=== PATIENT | female | born 1995 | race Hispanic/Latino ===

== ENCOUNTER 2017-08-24 14:01 | Emergency (ER) | payer OTHER ==
[2017-08-24 14:26] LABS: APPEARANCE,URINE Turbid (CLEAR); BILIRUBIN,URINE Negative (NEGATIVE); COLOR,URINE Yellow (YELLOW); GLUCOSE, URINE (UA) Negative (NEGATIVE); KETONES,URINE Negative (NEGATIVE); LEUKOCYTE ESTERASE ,URINE Large (NEGATIVE); NITRATE,URINE Negative (NEGATIVE); OCCULT BLOOD,URINE Trace (NEGATIVE); PH,URINE 7.5 (5.0-8.0); PROTEIN,URINE Negative (NEGATIVE)
[2017-08-24 14:30] LABS: AMORPHOUS SEDIMENT,UR Many /LPF (None Seen); BACTERIA,URINE Few /HPF (None Seen); SQUAMOUS EPITHELIAL CELL,UR Few /HPF (0-2)
[2017-08-24] MEDS ORDERED: PHENAZOPYRIDINE HCL 200 MG TABLET ONE (14:41)
[2017-08-24] MEDS ORDERED: CEFTRIAXONE SODIUM 1 GM ONE (14:41)
[2017-08-24] MEDS ORDERED: LIDOCAINE HCL-MPF 1% 2ML VIAL ONE (14:41)
== END 2017-08-24 15:08 | disposition home or self-care (01) ==
LOC: EDH 14:01
DX: N39.0 Urinary tract infection, site not specified (principal)
CPT/HCPCS: 81001; 81025; 96372; 99284; J0696; J3490

== ENCOUNTER 2018-08-01 17:41 | Emergency (ER) | payer OTHER ==
[2018-08-01] MEDS ORDERED: AMOXICILLIN/POTASSIUM CLAV 875-125 TABLET PO ONE (18:22)
[2018-08-01] MEDS ORDERED: DEXAMETHASONE SOD PHOSPHATE 10MG/ML 1ML VIAL ONE (18:22)
== END 2018-08-01 19:01 | disposition home or self-care (01) ==
LOC: EDH 17:41
DX: J01.10 Acute frontal sinusitis, unspecified (principal); Z90.49 Acquired absence of other specified parts of digestive tract; Z72.0 Tobacco use
CPT/HCPCS: 81025; 96372; 99283; J1100

== ENCOUNTER 2018-11-15 12:22 | Emergency (ER) | payer OTHER ==
[2018-11-15 12:42] LABS: APPEARANCE,URINE CLOUDY (CLEAR); BILIRUBIN,URINE NEGATIVE (NEGATIVE); COLOR,URINE YELLOW (YELLOW); GLUCOSE, URINE (UA) NEGATIVE (NEGATIVE); KETONES,URINE NEGATIVE (NEGATIVE); LEUKOCYTE ESTERASE ,URINE SMALL (NEGATIVE); NITRATE,URINE NEGATIVE (NEGATIVE); OCCULT BLOOD,URINE NEGATIVE (NEGATIVE); PROTEIN,URINE NEGATIVE (NEGATIVE)
[2018-11-15 12:47] LABS: HCG,QUAL RESULT POSITIVE (NEGATIVE)
[2018-11-15 12:57] LABS: RBC,URINE 0-1 /HPF (0-1); WBC,URINE 0-1 /HPF (0-1)
[2018-11-15 12:58] LABS: AMORPHOUS SEDIMENT,UR Many /LPF (None Seen); BACTERIA,URINE Rare /HPF (None Seen); SQUAMOUS EPITHELIAL CELL,UR Rare /HPF (0-2)
[2018-11-15] MEDS ORDERED: ONDANSETRON HCL 4 MG/2 ML VIAL ONE (13:11)
[2018-11-15 13:14] LABS: BASOPHILS % (AUTO) 0.1 % (0.0-5.0); EOSINOPHILS % (AUTO) 0.3 % (0.0-8.0); HEMATOCRIT 36.7 % (36-48); MEAN CORPUSCULAR HEMOGLOBIN 30.4 pg (27.0-33.0); MEAN CORPUSCULAR HGB CONC 34.9 g/dL (32.0-36.0); MONOCYTES % (AUTO) 5.8 % (3.0-13.0); NEUTROPHILS % (AUTO) 70.8 % (40.0-77.0); PLATELET COUNT (AUTO) 203 K/uL (130-400); RED BLOOD CELL COUNT(AUTO) 4.22 MIL/uL (4.00-5.50); WHITE BLOOD COUNT (AUTO) 6.7 K/uL (4.8-10.8)
[2018-11-15 13:28] LABS: CREATININE 0.6 mg/dL (0.5-1.5); POTASSIUM 3.6 mmol/L (3.5-5.1)
[2018-11-15 13:32] LABS: ALBUMIN 3.4 g/dL (3.5-5.0); BILIRUBIN,TOTAL 0.3 mg/dL (0.2-1.0)
== END 2018-11-15 14:16 | disposition home or self-care (01) ==
LOC: EDH 12:22
DX: O23.41 Unspecified infection of urinary tract in pregnancy, first trimester (principal); O21.8 Other vomiting complicating pregnancy; Z3A.10 10 weeks gestation of pregnancy; Z90.49 Acquired absence of other specified parts of digestive tract
CPT/HCPCS: 36415; 76801; 80053; 81001; 81025; 83690; 84702; 85025; 96374; 99285; J2405

== ENCOUNTER 2019-02-19 07:17 | Observation (INO) | payer MEDICAID ==
[~2019-02-19] VITALS: Ht 165.1 cm; Wt 83.5 kg
[2019-02-19 07:52] LABS: APPEARANCE,URINE TURBID (CLEAR); BILIRUBIN,URINE NEGATIVE (NEGATIVE); COLOR,URINE YELLOW (YELLOW); GLUCOSE, URINE (UA) NEGATIVE (NEGATIVE); KETONES,URINE 15 mg/dL (NEGATIVE); LEUKOCYTE ESTERASE ,URINE LARGE (NEGATIVE); NITRATE,URINE POSITIVE (NEGATIVE); OCCULT BLOOD,URINE MODERATE (NEGATIVE); PROTEIN,URINE 100 mg/dL (NEGATIVE); UROBILINOGEN,URINE 0.2 mg/dL (0.2-1.0)
[2019-02-19 07:58] LABS: BACTERIA,URINE Many /HPF (None Seen); MUCUS,URINE Rare LPF (None Seen); SQUAMOUS EPITHELIAL CELL,UR Few /HPF (0-2); WBC,URINE TNTC /HPF (0-1)
[2019-02-19] MEDS ORDERED: PROMETHAZINE HCL 25 MG/ML 1ML AMPULE IM SCH (08:30)
[2019-02-19] MEDS ORDERED: CEFAZOLIN SODIUM 1 GM VIAL IVP SCH (08:30)
[2019-02-19] MEDS ORDERED: ONDANSETRON HCL 4 MG/2 ML VIAL IVP SCH (08:30)
[2019-02-19 08:42] LABS: BASOPHILS % (AUTO) 0.5 % (0.0-5.0); HEMATOCRIT 35.3 % (36-48); LYMPHOCYTES % (AUTO) 6.9 % (21.0-51.0); MEAN CORPUSCULAR HEMOGLOBIN 29.3 pg (27.0-33.0); MEAN CORPUSCULAR HGB CONC 33.3 g/dL (32.0-36.0); MEAN CORPUSCULAR VOLUME 88.2 fL (79-99); MONOCYTES % (AUTO) 3.5 % (3.0-13.0); NEUTROPHILS % (AUTO) 89.1 % (40.0-77.0); PLATELET COUNT (AUTO) 214 K/uL (130-400); RED BLOOD CELL COUNT(AUTO) 4.01 MIL/uL (4.00-5.50); RED CELL DISTRIBUTION WIDTH 13.2 % (11.0-15.5); WHITE BLOOD COUNT (AUTO) 16.2 K/uL (4.8-10.8)
[2019-02-19 08:52] LABS: CREATININE 0.5 mg/dL (0.5-1.5); POTASSIUM 3.8 mmol/L (3.5-5.1)
--- NOTE | 2019-02-19 08:59 | NUR ---
Phenergan 25mg vial scanned and filed to give. Vial dropped and broken. Phenergan not given.
[2019-02-19] MEDS ORDERED: LACTATED RINGERS 1000ML 1,000 ML IV SCH (09:15)
[2019-02-19] MEDS ORDERED: ONDANSETRON HCL 4 MG/2 ML VIAL IVP PRN (09:30)
[2019-02-19] MEDS: LACTATED RINGERS 1000ML 1,000 ML IV SCH (09:50)
[2019-02-19 09:54] VITALS: BP 125/75
[2019-02-19] MEDS: ACETAMINOPHEN 325 MG TAB PO PRN (10:35)
[2019-02-19 10:46] LABS: AMPHET/METH SCREEN,URINE NEGATIVE (NEGATIVE); BARBITURATE SCREEN, URINE NEGATIVE (NEGATIVE); BENZODIAZEPINES SCREEN,URINE NEGATIVE (NEGATIVE); CANNABINOID SCREEN,URINE NEGATIVE (NEGATIVE); COCAINE SCREEN,URINE NEGATIVE (NEGATIVE); OPIATE SCREEN,URINE NEGATIVE (NEGATIVE); PHENCYCLIDINE SCREEN,URINE NEGATIVE (NEGATIVE)
[2019-02-19 11:19] VITALS: BP 124/70
[2019-02-19] MEDS ORDERED: PNV1TABL17 PO (12:49)
--- NOTE | 2019-02-19 14:30 | NUR ---
CM NOTE PT IS OBS STATUS WITH NO TRIGGERS TO CM AND NO CONCERNS VOICED BY RN OR PT. DETAILED CM ASSESSMENT DEFERRED AT THIS TIME. WILL REVISIT IF PT'S STAY EXTENDS Addendum: 02/20/19 at 0704 by BARBARA PERERA RN CM Amended: Links added.
[2019-02-19 16:41] VITALS: BP 109/77
[2019-02-19] MEDS: CEFAZOLIN SODIUM 1 GM VIAL IVP SCH ×2 (17:15→17:41)
[2019-02-19 19:29] VITALS: BP 100/53
[2019-02-19 23:25] VITALS: BP 108/62
[2019-02-20] MEDS: CEFAZOLIN SODIUM 1 GM VIAL IVP SCH ×3 (00:59→17:04)
[2019-02-20] MEDS: LACTATED RINGERS 1000ML 1,000 ML IV SCH (01:09)
[2019-02-20 03:24] VITALS: BP 99/52
[2019-02-20 07:36] VITALS: BP 108/65
[2019-02-20] MEDS: ACETAMINOPHEN 325 MG TAB PO PRN (09:53)
[2019-02-20 11:45] VITALS: BP 115/65
[2019-02-20 15:29] VITALS: BP 107/59
--- NOTE | 2019-02-20 17:10 | NUR ---
DISCHARGE INSTRUCTIONS READ AND EXPLAINED TO PATIENT. HANDOUTS HIGHLIGHTED AND REVIEWED WITH PATIENT. PRESCRIPTION FOR MACROBID [id number] HANDED TO PATIENT. QUESTIONS INVITED AND ANSWERED. PT VOICED UNDERSTANDING.
--- NOTE | 2019-02-20 17:15 | NUR ---
DISCHARGE PATIENT LEFT UNIT VIA WHEELCHAIR WITH BELONGINGS IN HAND. PERSONAL VEHICLE USED FOR TRANSPORTATION, ACCOMPANIED BY SIGNIFICANT OTHER. NO COMPLAINTS OR CONCERNS ADDRESSED FROM PATIENT ON DISCHARGE
== END 2019-02-20 17:15 | disposition home or self-care (01) ==
LOC: EDH 07:17 → LDH 07:18 → UNDOADMOB 07:18 → WSH 09:49 → LDH 09:49
PROVIDERS: ADMIT Obstetrics & Gynecology; ATTEND Obstetrics & Gynecology
DX: O23.02 Infections of kidney in pregnancy, second trimester (principal); N12 Tubulo-interstitial nephritis, not specified as acute or chronic; O21.2 Late vomiting of pregnancy; Z3A.25 25 weeks gestation of pregnancy
CPT/HCPCS: 36415; 80048; 80305; 81001; 85025; 87077; 87088; 87186; 96360; 96361; 96372; 96374; 96376; G0378; J0690; J2550; J7120

== ENCOUNTER 2019-05-17 07:15 | Observation (INO) | payer MEDICAID ==
[~2019-05-17] VITALS: Ht 165.1 cm; Wt 93.9 kg
[~2019-05-17 07:15] MED LIST: PNV1TABL17 PO
[2019-05-17] MEDS ORDERED: ONDANSETRON HCL 4 MG/2 ML VIAL IVP SCH (08:15)
[2019-05-17] MEDS ORDERED: LACTATED RINGERS 1000ML 1,000 ML IV SCH (08:15)
[2019-05-17] MEDS ORDERED: PANTOPRAZOLE 40 MG/VIAL IVP SCH (08:15)
[2019-05-17 08:29] LABS: APPEARANCE,URINE Cloudy (CLEAR); BILIRUBIN,URINE Negative (NEGATIVE); COLOR,URINE Yellow (YELLOW); GLUCOSE, URINE (UA) Negative (NEGATIVE); KETONES,URINE Negative (NEGATIVE); LEUKOCYTE ESTERASE ,URINE Small (NEGATIVE); NITRATE,URINE Negative (NEGATIVE); OCCULT BLOOD,URINE Negative (NEGATIVE); PH,URINE 5.5 (5.0-8.0); PROTEIN,URINE POS 1+ mg/dL (NEGATIVE)
[2019-05-17 08:44] LABS: BACTERIA,URINE Rare /HPF (None Seen); CALCIUM OXALATE CRYSTALS,UR Moderate /LPF (None Seen); RBC,URINE 0-1 /HPF (0-1); SQUAMOUS EPITHELIAL CELL,UR Moderate /HPF (0-2)
== END 2019-05-17 10:38 | disposition home or self-care (01) ==
LOC: EDH 07:15 → LDH 07:25
PROVIDERS: ADMIT Obstetrics & Gynecology; ATTEND Obstetrics & Gynecology
DX: O26.893 Other specified pregnancy related conditions, third trimester (principal); R11.0 Nausea; R10.9 Unspecified abdominal pain; Z90.49 Acquired absence of other specified parts of digestive tract; Z3A.37 37 weeks gestation of pregnancy
CPT/HCPCS: 81001; 96374; 96375; 99284; C9113; G0378 ×3; J2405 ×2; J7120 ×2; 96360; 96361

== ENCOUNTER 2023-03-30 21:23 | Emergency (ER) | payer BC, MEDICAID ==
[~2023-03-30] VITALS: Ht 165.1 cm; Wt 86.2 kg
[2023-03-30 22:05] LABS: SARS-CoV-2, RNA, NAAT NEGATIVE SARS CoV-2 (NEGATIVE)
[2023-03-30 22:09] LABS: APPEARANCE,URINE CLOUDY (CLEAR); BILIRUBIN,URINE NEGATIVE (NEGATIVE); COLOR,URINE YELLOW (YELLOW); GLUCOSE, URINE (UA) NEGATIVE (NEGATIVE); KETONES,URINE 5 mg/dL (NEGATIVE); LEUKOCYTE ESTERASE ,URINE 25 Leu/uL (NEGATIVE); NITRATE,URINE NEGATIVE (NEGATIVE); OCCULT BLOOD,URINE NEGATIVE (NEGATIVE); PROTEIN,URINE 30 mg/dL (NEGATIVE); UROBILINOGEN,URINE 0.2 mg/dL (0.2-1.0)
[2023-03-30 22:10] LABS: ADD UA MICROSCOPIC YES
[2023-03-30 22:11] LABS: INFLUENZA TYPE A Negative For Type A (NEGATIVE)
[2023-03-30 22:12] LABS: BACTERIA,URINE RARE /HPF (None Seen); MUCUS,URINE MANY LPF (None Seen); SQUAMOUS EPITHELIAL CELL,UR MOD /HPF (0-2)
[2023-03-30 22:15] LABS: HCG,QUALITATIVE URINE NEGATIVE (NEGATIVE)
[2023-03-30 22:18] LABS: INFLUENZA TYPE B Positive For Type B (NEGATIVE)
[2023-03-30] MEDS ORDERED: BROM118S48 PO (22:24)
[2023-03-30] MEDS ORDERED: OSEL75 PO (22:24)
[2023-03-30] MEDS ORDERED: FLUT16H NASAL (22:24)
[2023-03-30 22:41] LABS: BASOPHILS # (AUTO) 0.01 K/uL (0.00-0.20); BASOPHILS % (AUTO) 0.1 % (0.0-5.0); HEMATOCRIT 43.1 % (36-48); IMMATURE GRANULOCYTE ABSOLUTE 0.03 K/uL (0-1); LYMPHOCYTES # (AUTO) 0.7 K/uL (1.0-4.8); LYMPHOCYTES % (AUTO) 10.8 % (21.0-51.0); MEAN CORPUSCULAR HEMOGLOBIN 29.3 pg (27.0-33.0); MEAN CORPUSCULAR HGB CONC 33.9 g/dL (32.0-36.0); MEAN CORPUSCULAR VOLUME 86.5 fL (79-99); MONOCYTES # (AUTO) 0.7 K/uL (0.1-1.0); MONOCYTES % (AUTO) 9.9 % (3.0-13.0); NEUTROPHILS # (AUTO) 5.3 K/uL (1.8-7.7); NEUTROPHILS % (AUTO) 78.8 % (40.0-77.0); PLATELET COUNT (AUTO) 223 K/uL (130-400); RED BLOOD CELL COUNT(AUTO) 4.98 MIL/uL (4.00-5.50); RED CELL DISTRIBUTION WIDTH 12.9 % (11.0-15.5); WHITE BLOOD COUNT (AUTO) 6.8 K/uL (4.8-10.8)
[2023-03-30 22:51] LABS: CREATININE 0.7 mg/dL (0.5-1.5); POTASSIUM 3.8 mmol/L (3.5-5.1)
[2023-03-30 22:56] LABS: ALBUMIN 3.8 g/dL (3.5-5.0); BILIRUBIN,TOTAL 0.3 mg/dL (0.2-1.0); TOTAL PROTEIN, SERUM 7.9 g/dL (6.0-8.3)
[2023-03-30 23:18] VITALS: BP 134/86; PULSE 96; RESP 17; O2SAT 99
== END 2023-03-30 23:18 | disposition home or self-care (01) ==
LOC: EDH 21:23
DX: S09.8XXA Other specified injuries of head, initial encounter (principal); J10.1 Influenza due to other identified influenza virus with other respiratory manifestations; B34.9 Viral infection, unspecified; Z79.899 Other long term (current) drug therapy; Z20.822 Contact with and (suspected) exposure to COVID-19; W18.39XA Other fall on same level, initial encounter; Y93.89 Activity, other specified; Y92.89 Other specified places as the place of occurrence of the external cause; Y99.8 Other external cause status
CPT/HCPCS: 99285; 70450; 87635; 80053; 83690; 85025; 87088; 87804 ×2; 81001; 81025; 36415; 72125; 93005; C9803